=== PATIENT | female | born 1975 ===

== ENCOUNTER 2019-04-29 08:29 | Outpatient (CLI) | payer OTHER ==
[~2019-04-29 08:29] MED LIST: SEPTRA DS TABLE1 TAB PO; SYNTHROID50 MCG; URIN D.S. TABLE1 TAB PO
== END 2019-04-29 09:18 | disposition home or self-care (01) ==
LOC: NUCLEAR 08:29
DX: I87.2 Venous insufficiency (chronic) (peripheral) (principal); R10.2 Pelvic and perineal pain

== ENCOUNTER 2020-07-25 10:31 | Outpatient (CLI) | payer OTHER | END 2020-07-25 11:15 | disposition home or self-care (01) | LOC: OFIC 805 10:31 | PROVIDERS: ATTEND Otolaryngology Otology & Neurotology | DX: H65.21 Chronic serous otitis media, right ear (principal); H90.11 Conductive hearing loss, unilateral, right ear, with unrestricted hearing on the contralateral side ==

== ENCOUNTER 2020-08-06 07:56 | Outpatient (CLI) | payer OTHER | END 2020-08-06 07:57 | disposition home or self-care (01) | LOC: LAB 07:56 | PROVIDERS: ATTEND Internal Medicine | DX: E03.8 Other specified hypothyroidism (principal); I10 Essential (primary) hypertension; M54.5 Low back pain; E78.89 Other lipoprotein metabolism disorders; I78.8 Other diseases of capillaries; R05 Cough; R09.81 Nasal congestion; R50.9 Fever, unspecified; J11.1 Influenza due to unidentified influenza virus with other respiratory manifestations; J09.X2 Influenza due to identified novel influenza A virus with other respiratory manifestations; Z20.828 Contact with and (suspected) exposure to other viral communicable diseases; Z03.818 Encounter for observation for suspected exposure to other biological agents ruled out ==

== ENCOUNTER 2020-08-10 12:15 | Day surgery (SDC) | payer OTHER | END 2020-08-10 17:10 | disposition home or self-care (01) | LOC: CIR.AMB 12:15 | PROVIDERS: ATTEND Otolaryngology Otology & Neurotology | DX: H65.21 Chronic serous otitis media, right ear (principal); Z20.822 Contact with and (suspected) exposure to COVID-19 ==

== ENCOUNTER 2020-08-15 08:08 | Outpatient (CLI) | payer OTHER | END 2020-08-15 08:16 | disposition home or self-care (01) | LOC: OFIC 805 08:08 | PROVIDERS: ATTEND Otolaryngology Otology & Neurotology | DX: H65.21 Chronic serous otitis media, right ear (principal); H90.11 Conductive hearing loss, unilateral, right ear, with unrestricted hearing on the contralateral side ==

== ENCOUNTER 2020-09-12 08:51 | Outpatient (CLI) | payer OTHER | END 2020-09-12 09:57 | disposition home or self-care (01) | LOC: OFIC 805 08:51 | PROVIDERS: ATTEND Otolaryngology Otology & Neurotology | DX: H65.21 Chronic serous otitis media, right ear (principal); H90.11 Conductive hearing loss, unilateral, right ear, with unrestricted hearing on the contralateral side ==

== ENCOUNTER 2022-02-05 15:11 | Outpatient (CLI) | payer OTHER | END 2022-02-05 15:24 | disposition home or self-care (01) | LOC: RAD 15:11 | DX: M79.671 Pain in right foot (principal) ==

== ENCOUNTER 2022-08-18 11:52 | Outpatient (CLI) | payer OTHER | END 2022-08-18 12:00 | disposition home or self-care (01) | LOC: SONOGRAMA 11:52 | DX: M79.642 Pain in left hand (principal) ==

== ENCOUNTER → 2024-01-11 10:00 | Outpatient (CLI) | payer OTHER | END | disposition home or self-care (01) | LOC: RAD 10:00 | PROVIDERS: ATTEND Obstetrics & Gynecology | DX: I87.8 Other specified disorders of veins (principal) ==